=== PATIENT | male | born 1950 | race Caucasian/White ===

== ENCOUNTER 2016-09-14 18:40 | Emergency (ER) | payer OTHER, MEDICARE ==
--- NOTE | 2016-09-14 20:02 | EDPHY ---
H & P Stated Complaint: Swelling legs after long plane ride, no pain Time Seen by Provider: 09/14/16 20:02 - Personal History Current Tetanus/Diphtheria Vaccine: Yes Current Tetanus Diphtheria and Acellular Pertussis (TDAP): Yes - Medical/Surgical History Hx Asthma: Yes Hx Chronic Respiratory Disease: No Hx Diabetes: No Hx Cardiac Disease: Yes Hx Renal Disease: No Hx Cirrhosis: No Hx Alcoholism: No Hx HIV/AIDS: No Hx Splenectomy or Spleen Trauma: No Other PMH: PMH: asthma, HTN, PVCs, mitral prolapse - Social History Smoking Status: Never smoked Constitutional: Initial Vital Signs Temperature (C) 36.4 C 09/14/16 18:58 Heart Rate 78 09/14/16 18:58 Respiratory Rate 18 09/14/16 18:58 Blood Pressure 150/85 H 09/14/16 18:58 O2 Sat (%) 96 09/14/16 18:58 O2 Delivery Mode Room Air Allergies/Adverse Reactions: No Known Allergies Allergy (Unverified 09/14/16 19:02) Home Medications: Medication Instructions Recorded Avodart 0.5 MG (*) 09/14/16 Tamsulosin HCl 09/14/16 Medical Decision Making ED Course/Re-evaluation: CHIEF COMPLAINT: Bilateral pedal edema HISTORY OF PRESENT ILLNESS: This patient is a 66 year old male who presents to the Emergency Department complaining of acute bilateral pedal edema beginning today when he returned home from a 21-hour flight from [facility]. He denies shortness of breath or any additional concerns. No history of thromboembolic disease. Medical history includes mitral prolapse and hypertension. REVIEW OF SYSTEMS: A 10 point review of systems was performed and is negative with the exception of the elements mentioned in the history of present illness. PHYSICAL EXAM: HR, BP, O2 Sat, RR. Temp noted General Appearance: Alert, well hydrated, appropriate, and non-toxic appearing. Head: Atraumatic without scalp tenderness or obvious injury Eyes: Pupils equal, round, reactive to light and accommodation, EOMI, no trauma , no injection. Ears: Clear bilaterally, no perforation, normal landmarks Nose: Atraumatic, no rhinorrhea, clear. Throat: There is no erythema or exudates, no lesions, normal tonsils, mucus membranes moist. Neck: Supple, 2+ carotid upstroke, nontender, no lymphadenopathy. Respiratory: No retractions, no distress, no wheezes, and no accessory muscle use. Lungs are clear to auscultation bilaterally. Cardiovascular: Regular rate and rhythm, no murmurs, rubs, or gallops. Bilateral carotid, radial, dorsalis pedis, and posterior tibial pulses intact. Good capillary refill all extremities. Gastrointestinal: Abdomen is soft, nontender, non-distended, no masses, no rebound, no guarding, no peritoneal signs. Musculoskeletal: Normal active ROM of all extremities, atraumatic, 1+ pedal edema bilaterally. Neurological: Alert, appropriate, and interactive. The patient has normal DTRs and non-focal cranial nerves, motor, sensory, and cerebellar exam. Skin: No rashes, good turgor, no nodules on palpation. Past medical history: Mitral prolapse, hypertension, asthma. Past surgical history: Denies Family history: Non-contributory Social history: at bedside. Just returned from [facility]. DIAGNOSTICS/PROCEDURES/CRITICAL CARE TIME: IMAGING: Study: Ultrasound of the bilateral lower extremities Indication: Pedal edema Results: Doppler US of the lower extremities was obtained. The results of the study are: negative. The study was read by the radiologist, Dr. Mccoy. I viewed the images myself on the PACS system. DIFFERENTIAL DIAGNOSIS: Differential diagnosis for the patient's bilateral pedal edema includes but is not limited to: DVT or pressure-induced leg edema. MEDICAL DECISION MAKING: This 66 y/o male presents to the ED concerned about bilateral pedal edema following a long international flight. He requests rule out of DVT. On exam, he has minimal pedal edema bilaterally. Will proceed with Doppler US of both lower extremities. 2200: Imaging results reported to me by Dr. Mccoy. I shared these results with the patient who is relieved. He is given return precautions and instructions to follow-up with his PCP if his symptoms do not resolve within the 3-5 days. He is agreeable to this and will be discharged home in stable condition. Departure - Departure Disposition: Home, Routine, Self-Care Clinical Impression: Pedal edema Condition: Good Instructions: Leg Edema (ED) Additional Instructions: 1. Follow-up with your primary care provider if your leg swelling persists. 2. Return to the Emergency Department if you experience chest pain, shortness of breath, increased swelling or pain to your legs, or other serious concerns. Referrals: Sofy Farfan MD [Primary Care Provider] - As per Instructions Report Scribed for: Juan Diaz Report Scribed by: Antonia Grady Date of Report: 09/14/16 Time of Report: 20:04
[2016-09-14 22:08] VITALS: BP 154/93; PULSE 73; RESP 15; TEMP 97.7; O2SAT 95
--- NOTE | 2016-09-14 22:19 | US ---
Bilateral lower extremity duplex venous Doppler INDICATION: Bilateral leg pain and swelling. TECHNIQUE: Bilateral lower extremity venous Doppler and grayscale evaluation is performed. FINDINGS: There is no evidence for DVT. The visualized superficial and deep systems demonstrate sarah l flow and compressibility. No fluid collection. No mass. IMPRESSION: Normal bilateral lower extremity duplex venous Doppler. Findings are discussed with Dr. Juan Diaz.
== END 2016-09-14 22:08 | disposition home or self-care (01) ==
DX: R60.0 Localized edema (principal); J45.909 Unspecified asthma, uncomplicated; I10 Essential (primary) hypertension

== ENCOUNTER → 2017-10-11 | Outpatient (CLI) | payer OTHER, MEDICARE | LOC: BHFA 09:00 | PROVIDERS: ATTEND Internal Medicine Cardiovascular Disease | DX: R07.9 Chest pain, unspecified (principal); R00.2 Palpitations; R06.02 Shortness of breath; I34.0 Nonrheumatic mitral (valve) insufficiency ==

== ENCOUNTER → 2017-10-14 | Outpatient (CLI) | payer OTHER, MEDICARE | LOC: BHFA 15:30 | PROVIDERS: ATTEND Internal Medicine | DX: I34.0 Nonrheumatic mitral (valve) insufficiency (principal) ==

== ENCOUNTER → 2018-04-28 | Outpatient (CLI) | payer OTHER, MEDICARE ==
[~2018-04-28] MED LIST: IOPAMIDOL (ISOVUE-300) 100 ML BTL ONE
== END ==
LOC: FIMAGING 08:32
PROVIDERS: ATTEND Internal Medicine
DX: K83.8 Other specified diseases of biliary tract (principal); K76.89 Other specified diseases of liver; N28.1 Cyst of kidney, acquired; N40.1 Benign prostatic hyperplasia with lower urinary tract symptoms
CPT/HCPCS: 74177; Q9967; 82565-PO